=== PATIENT | female | born 1990 | race Caucasian/White ===

== ENCOUNTER 2018-03-17 20:32 | Emergency (ER) | payer OTHER, SELFPAY ==
--- NOTE | 2018-03-17 20:32 | DT_ITS ---
This patient was seen during an EMR downtime March 10, 2018 - March 17, 2018. This patient may have a combination of paper and electronic documentation or all paper documentation. All documentation is viewable within the e-chart portion of [facility] for each patient visit.
[2018-03-17 20:33] VITALS: BP 176/115; PULSE 98; RESP 14; TEMP 37.5; O2SAT 98; BMI 30.4
--- NOTE | 2018-03-17 21:21 | CT_ITS ---
STUDY: CT ABDOMEN AND PELVIS WITH CONTRAST REASON FOR EXAM: Female, 28 years old. Lower abdominal pain RADIATION DOSAGE (If Supplied By Facility): CTDIvol = ( 19.94 ) mGy, DLP = ( 868.99 ) mGycm TECHNIQUE: Transaxial images were obtained from the dome of the diaphragm to the symphysis pubis without oral contrast. 100 ml of Isovue 300 contrast was administered. Sagittal and coronal images were reconstructed. Individualized dose optimization techniques were used for this CT. COMPARISON: None. FINDINGS: The visualized lung bases are unremarkable. The visualized portions of the heart are within normal limits. There is decreased attenuation of the liver consistent with steatosis. Hepatomegaly. The liver measures 19 cm in length. Multiple gallstones are present. Indeterminate 2.9 x 2.6 cm low density lesion in the anterior spleen. Normal pancreas. Indeterminate nonfatty mass in the right adrenal gland measuring 3.5 x 2.5 cm. Normal right kidney. Normal left kidney. Normal visualized stomach. Normal small intestine. There are multiple colonic diverticula consistent with diverticulosis. The appendix is visualized and appears normal. Normal abdominal aorta. Normal inferior vena cava. Normal retroperitoneum. Normal urinary bladder. A 14 mm left ovary cyst or follicle is visible. Normal abdominal wall. Normal osseous structures. CT/Abdomen/Pelvis W IV Cont ONLY IMPRESSION: No evidence of acute intestinal pathology or acute obstructive uropathy. Hepatomegaly and fatty liver. Multiple gallstones. Indeterminate low density lesion in the spleen. Indeterminate right adrenal mass. Consider 12 month follow-up adrenal CT or MRI. A 14 mm left ovary cyst or follicle is visible. Electronically Signed: Mario Gore MD at 0:12 EDT Tel , Service support ,
[2018-03-17 22:12] LABS: Bacteria 0 SEEN /hpf (None Seen); Mucous, Urine 0 SEEN /hpf (<or=2+)
[2018-03-17 22:15] LABS: Absolute Lymphocyte Count 3.06 X10^3/ul (0.83-4.51); Absolute Neutrophil Count 5.8 X10^3/uL (2.0-7.7); Basophil# 0.06 X10^3/uL; Basophil% 0.6 % (0-1); Eosinophil# 0.21 X10^3/uL; Eosinophils% 2.2 % (0-5); Hematocrit 37.8 % (37-47); Lymphocyte # 3.06 X10^3/ul (4.0); Lymphocyte % 31.4 % (19-41); Mean Corp Hgb Conc 34.4 g/gl (32-36); Mean Corpuscular Hgb 28.6 pg (27.0-32.0); Mean Corpuscular Volume 83.1 fL (81-99); Mean Platelet Vol. 9.3 fl (6.2-12.0); Monocyte% 6.2 % (0-10); Neutrophil % 59.5 % (47-70); Platelet Count 259 K/mm3 (150-450); RBC Distribution Width CV 14.6 % (11.6-14.6); RBC Distribution Width SD 43.5 fl (35.1-43.9); Red Blood Count 4.55 M/mm3 (4.2-5.4); White Blood Count 9.7 K/mm3 (4.4-11.0)
[2018-03-17 22:18] LABS: POSITIVE COUNT NO; POSITIVE DIFFERENTIAL NO; POSITIVE MORPHOLOGY NO
[2018-03-17 22:26] LABS: Color, Urine Straw (Yellow); Glucose, Dipstick Normal (Normal); Ketone-Dipstick Negative (Negative); Leukocyte Esterase-Dipstick Negative /ul (Negative); Nitrite-Dipstick Negative (Negative); Occult Blood-Urine Negative /ul (Negative); Protein-Dipstick Negative (Negative); Specific Gravity, Urine 1.015 (1.002-1.030); Urine Bilirubin Dipstick Negative (Negative); Urine Clarity Clear (Clear); Urine Urobilinogen Normal (Normal)
[2018-03-17 22:34] LABS: Internal QC Validated? YES +Cl - CLEAR BKGD
[2018-03-17 22:35] LABS: Pregnancy, Urine Negative Negative
[2018-03-17 22:51] LABS: Squamous Epithelial Cells - UA 0-5 SEEN /hpf (5-10)
[2018-03-17 22:52] LABS: Red Blood Cells-Urine 0-5 SEEN /hpf (0-5); White Blood Cells 0-5 SEEN /hpf (0-5)
[2018-03-17 23:02] LABS: ALB/GLOB Ratio 1.2 RATIO (0.9-2.4); AST(SGOT) 27 U/L (15-37); Alanine Aminotransfer ALT/SGPT 33 U/L (13-56); Albumin, Serum 3.8 g/dL (3.2-5.0); Alkaline Phosphatase 64 U/L (45-117); Anion Gap 9 (5-15); BUN 9 mg/dL (7-18); BUN/Creat Ratio 12.3 RATIO (10-20); Calcium,Total 8.7 mg/dL (8.5-10.1); Chloride 101 mmol/L (98-107); Creatinine, Serum 0.73 mg/dL (0.55-1.02); EST Glomerular Filtration Rate 101 mL/min (>60); Est Glom Filt Rate - Afr Amer 122 mL/min (>60); Globulin 3.3 g/dL (2.2-4.2); Glucose 122 mg/dL (74-106); Potassium 2.5 mmol/L (3.5-5.1); Protein, Total 7.1 g/dL (6.4-8.2); Sodium Level 143 mmol/L (136-145)
--- NOTE | 2018-03-17 23:03 | EKG12_ITS ---
Test Reason : ABD PAIN Blood Pressure : / mmHG Vent. Rate : 084 BPM Atrial Rate : 084 BPM P-R Int : 152 ms QRS Dur : 100 ms QT Int : 402 ms P-R-T Axes : 051 -04 -17 degrees QTc Int : 475 ms Normal sinus rhythm Voltage criteria for left ventricular hypertrophy Nonspecific T wave abnormality Prolonged QT Abnormal ECG Confirmed by JOANNE MCCONNELL, LYNDA ([id number]), photograph editor SHAINA BOWDEN ([id number]) on 03/19/2018 5:18:32 PM Referred By: DR DHALIWAL Confirmed By:LYNDA RUBIO MD
--- NOTE | 2018-03-17 23:19 | ED.VISSUMM ---
- ER Visit Summary Date of Service: 03/17/18 Chief Complaint: Abdominal pain History of Present Illness: The patient is a 28 F who states that yesterday morning she awoke with lower abdominal pain. She states it is on both sides of her abdomen. It is worse with walking and any type of movement. It is sore when she pushes on it. She denies any bowel or bladder symptoms. She notes her last menstrual period was a little over 1 week ago. No fevers. No anorexia. She has been eating normally today. She states she has a history of GERD and hypertension but does not take any medications. Physical Examination: Afebrile vital signs are stable noted hypertension Gen: Well-nourished well-developed Head: Normocephalic atraumatic Eyes: Perrl EOMI ENT: TMs clear no rhinorrhea moist mucous membranes Neck: Supple no lymphadenopathy no JVD nontender CVS: Regular rate rhythm no murmurs normal S1-S2 Respiratory: No distress clear to auscultation bilaterally chest nontender Abdomen: Soft tender to palpation over the lower abdominal quadrants without guarding or rebound nondistended normal bowel sounds no masses Back: Nontender Extremity: Nontender no edema Skin: Normal color no rash Neuro: alert orientated ?3 CN II-XII intact normal strength sensation reflexes gait cerebellar Psych: Normal affect normal mood Test Results: White count is normal. Potassium is low at 2.5. Glucose 122. test negative. Urinalysis negative. CT the abdomen pelvis demonstrates gallstones adrenal nodule and ovarian cyst. EKG shows a sinus rhythm at a rate of 84. No U waves. Emergency Department Course and Treatment: None of the workup truly explain why the patient has bilateral lower abdominal pain. Could be a simple abdominal wall strain. The patient's blood pressure is elevated and we talked about whether or not she should start treatment and we are going to defer to primary care. Patient states she would like to get the potassium corrected first before she needs to start any blood pressure medication which I agree with. We will start her on potassium asked her to follow-up with her primary care physician on Saturday of this week. She is to record her blood pressures and take them to her doctor. Return if any worsening or concerns. Impression: 1. Acute abdominal pain 2. Hypokalemia 3. Gallstones 4. Adrenal nodule This note was generated with Dragon dictation software. It may contain incorrect words, spelling, and punctuation that were not noted in review of the chart prior to signing ED Disposition - Plan for ED Patient: Disposition: Home or Assisted Living Chief Complaint: Abd Pain Instructions: Discharge Instructions for Hypokalemia, What are Gallstones?, ED Hypertension Poss Prescriptions: Potassium Chloride [K-Dur] 40 meq PO DAILY #10 tab Additional Instructions: Please follow-up with your doctor on Saturday of this week to have your potassium rechecked as well as her blood pressure. It is more than likely that you will need to begin hypertension medications.
[2018-03-17 23:41] LABS: Magnesium 2.1 mg/dL (1.6-2.6)
[2018-03-18 00:01] VITALS: BP 165/115; PULSE 79; RESP 18; O2SAT 98
[2018-03-18 00:12] LABS: Potassium 2.3 mmol/L (3.5-5.1)
[2018-03-18 00:40] VITALS: BP 167/118
== END 2018-03-18 01:29 | disposition home or self-care (01) ==
PROVIDERS: Emergency Provider Emergency Medicine; Family Provider Internal Medicine; PCP Internal Medicine
DX: R10.32 Left lower quadrant pain (principal); R10.31 Right lower quadrant pain; K80.80 Other cholelithiasis without obstruction; E87.6 Hypokalemia; E27.9 Disorder of adrenal gland, unspecified; I10 Essential (primary) hypertension; N83.02 Follicular cyst of left ovary
CPT/HCPCS: 74177; 80053; 81001; 81025; 83735; 84132; 85025; 93005; 96365; 99285; J7030; A4216

== ENCOUNTER → 2018-04-10 14:28 | Outpatient (CLI) | payer OTHER, SELFPAY | PROVIDERS: Family Provider Internal Medicine; PCP Internal Medicine; Visit Provider Internal Medicine Nephrology | DX: E87.6 Hypokalemia (principal) | CPT/HCPCS: 84133 ==

== ENCOUNTER → 2018-04-12 10:26 | Outpatient (CLI) | payer OTHER, SELFPAY ==
[2018-04-12 11:47] LABS: Potassium 2.7 mmol/L (3.5-5.1)
== END ==
PROVIDERS: Family Provider Internal Medicine; PCP Internal Medicine; Visit Provider Internal Medicine Nephrology
DX: E87.6 Hypokalemia (principal)
CPT/HCPCS: 36415; 84132

== ENCOUNTER → 2018-04-14 08:21 | Outpatient (CLI) | payer OTHER, SELFPAY ==
[2018-04-19 12:13] LABS: Aldosterone, Ur 17.67 ug/L (Not Estab.); Cortisol, Urinary Free 17 ug/L (Undefined)
[2018-04-19 15:10] LABS: Cortisol, Free 24Ur 18 ug/24 hr (0-50)
== END ==
PROVIDERS: Family Provider Internal Medicine; PCP Internal Medicine; Visit Provider Internal Medicine Nephrology
DX: E26.9 Hyperaldosteronism, unspecified (principal)
CPT/HCPCS: 82088; 82530

== ENCOUNTER → 2018-04-22 09:06 | Outpatient (CLI) | payer OTHER, SELFPAY ==
[2018-04-28 10:11] LABS: Aldosterone, Serum 11.2 ng/dL (0.0-30.0); Renin, Plasma < 0.167 ng/mL/hr (0.167-5.380)
== END ==
PROVIDERS: Family Provider Internal Medicine; PCP Internal Medicine; Visit Provider Internal Medicine Nephrology
DX: E26.9 Hyperaldosteronism, unspecified (principal)
CPT/HCPCS: 36415; 82088; 84244

== ENCOUNTER → 2018-04-25 07:40 | Outpatient (CLI) | payer OTHER, SELFPAY ==
[2018-04-25 10:26] LABS: Albumin, Serum 3.6 g/dL (3.2-5.0); BUN 7 mg/dL (7-18); BUN/Creat Ratio 11.9 RATIO (10-20); Calcium,Total 8.7 mg/dL (8.5-10.1); Chloride 105 mmol/L (98-107); Creatinine, Serum 0.59 mg/dL (0.55-1.02); EST Glomerular Filtration Rate 129 mL/min (>60); Est Glom Filt Rate - Afr Amer 156 mL/min (>60); Glucose 93 mg/dL (74-106); Magnesium 1.9 mg/dL (1.6-2.6); Phosphorus 2.4 mg/dL (2.5-4.9); Sodium Level 144 mmol/L (136-145)
== END ==
PROVIDERS: Family Provider Internal Medicine; PCP Internal Medicine; Visit Provider Internal Medicine Nephrology
DX: E87.6 Hypokalemia (principal)
CPT/HCPCS: 36415; 80069; 83735

== ENCOUNTER → 2018-06-24 11:51 | Outpatient (CLI) | payer OTHER, SELFPAY ==
[2018-06-24 13:04] LABS: Potassium 3.7 mmol/L (3.5-5.1)
== END ==
PROVIDERS: Family Provider Internal Medicine; PCP Internal Medicine
DX: E87.6 Hypokalemia (principal)
CPT/HCPCS: 36415; 84132

== ENCOUNTER 2018-12-06 12:41 | Emergency (ER) | payer SELFPAY ==
[2018-12-06 12:43] VITALS: BP 162/89; PULSE 88; RESP 16; TEMP 36.2; O2SAT 100; BMI 30.9
--- NOTE | 2018-12-06 13:53 | US_ITS ---
STUDY: FIRST TRIMESTER OBSTETRICAL ULTRASOUND REASON FOR EXAM: Female, 28 years old. Pelvic pain and cramping LMP: 10/28/2018 TECHNIQUE: Transvaginal TECHNICAL QUALITY: Adequate. PRIOR ULTRASOUND: None. FINDINGS: There is visualization of a single gestational sac in a normal intrauterine position. The mean sac diameter (MSD) measures 1.1 cm, indicating an estimated gestational age (EGA) of 5 weeks, 5 days. The gestational sac shape is within normal limits. There is a visualized yolk sac. The yolk sac measures 3.1 mm. The placenta is non-visualized due to early gestation. There is no demonstrated embryo ( pole). The estimated gestation age (EGA) by LMP is 5 weeks, 4 days. The estimated date of delivery (FLORA) by LMP is 08/04/2019. The estimated gestation age (EGA) by US is 5 weeks, 5 days. The estimated date of delivery (FLORA) by US is 07/26/2019. The uterus measures 8.9 x 4.5 x 4.2 cm. There is no demonstrated uterine fibroid. The cervix is closed. The right ovary measures 2.7 x 2.6 x 1.8 cm. There is no right ovarian cyst. There is no visualized right adnexal mass or complex lesion. The left ovary measures 3.2 x 2.8 x 2.3 cm. There is no left ovarian cyst. There is no visualized left adnexal mass or complex lesion. There is no fluid in the cul de sac. US/Transvaginal w/Preg US IMPRESSION: 1. Intrauterine gestational sac with yolk sac but no visualized embryonic pole. May represent early . Serologic and sonographic follow-up recommended. 2. No adnexal masses or pelvic free fluid. Electronically Signed: Wilbur Bruce MD at 15:22 EST , Service support ,
--- NOTE | 2018-12-06 13:55 | ED.DCSUM_ITS ---
- ER Visit Summary Date of Service: 12/06/18 Chief Complaint: Pelvic pain History of Present Illness: The patient is a 28 F presenting with pelvic pain. She states this feels like menstrual cramps but worse than usual. She is currently 6 weeks . Her last mental period was end of October. She is . She denies vaginal bleeding. She has nausea with no vomiting. Denies other complaints. Physical Examination: Vitals are stable. Patient is afebrile. Alert no acute distress. HEENT exam is unremarkable. Neck is supple. Lungs are clear and equal bilaterally. Heart is regular rate and rhythm. Abdomen is soft nontender nondistended. No guarding or rebound Extremities are unremarkable. Skin is warm and dry. No focal neurologic deficit. Remainder of exam is unremarkable. Emergency Department Course and Treatment: Patient was given Tylenol, Zofran. Pelvic ultrasound shows intrauterine gestational sac with yolk sac but no visualized embryonic pole. May represent early . Serologic and sonographic follow-up recommended. No adnexal masses or pelvic free fluid. Blood type A+. HCG quant 9313. Patient is resting comfortably on reevaluation. Advised to follow-up with Dr. 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 Advised return to ED for worsening complaints. Disposition: Discharge home Impression: This note was generated with [employer] dictation software. It may contain incorrect words, spelling, and punctuation that were not noted in review of the chart prior to signing ED Disposition - Plan for ED Patient: Instructions: ED Care Prescriptions: Ondansetron [Zofran Odt] 4 mg PO Q8H PRN PRN #10 tablet PRN Reason: Nausea Referrals: Yolie Philippe MD [STAFF PHYSICIAN] - Indiana Callejas MD [Primary Care Provider] -
[2018-12-06] MEDS: Ondansetron ODT 4 MG Tablet PO (15:03)
[2018-12-06] MEDS: Acetaminophen 500 MG Tablet 1000 MG PO (15:03)
[2018-12-06 16:30] LABS: hCG Titer Quant., Serum 9313 mIU/mL (<9 non-preg)
--- NOTE | 2018-12-06 16:35 | ED.DEP ---
ED Disposition - Plan for ED Patient: Instructions: ED Care Prescriptions: Ondansetron [Zofran Odt] 4 mg PO Q8H PRN PRN #10 tablet PRN Reason: Nausea Referrals: Indiana Callejas MD [Primary Care Provider] - Yolie Philippe MD [STAFF PHYSICIAN] -
[2018-12-06 16:47] VITALS: PULSE 84; RESP 17; O2SAT 100
== END 2018-12-06 16:49 | disposition home or self-care (01) ==
LOC: ED 13:59
PROVIDERS: Emergency Provider Emergency Medicine; Family Provider Internal Medicine; PCP Internal Medicine
DX: O26.891 Other specified pregnancy related conditions, first trimester (principal); R10.2 Pelvic and perineal pain; Z3A.01 Less than 8 weeks gestation of pregnancy
CPT/HCPCS: 36415; 76817; 84702; 86900; 99283

== ENCOUNTER 2021-07-13 00:51 | Emergency (ER) | payer OTHER, SELFPAY ==
[2021-07-13 00:52] VITALS: BP 137/96; PULSE 88; RESP 18; TEMP 37.1; O2SAT 98; BMI 32.4
--- NOTE | 2021-07-13 01:38 | ED.VIS.GI ---
HPI HPI - GI History of Present Illness Chief Complaint: Abd Pain Detail of Chief Complaint: Abdominal pain that started 2 days ago Informant: patient Narrative Narrative: Patient complains of abdominal pain that started 2 days ago. She describes it as achy and crampy. She rates it a 7 out of 10 currently. Patient's had nausea but no vomiting. Last menstrual period was 30 days ago. Patient had her gallbladder removed. A friend gave her an antacid but did not seem to help this morning. Patient's had no fevers. She denies urinary symptoms. She has had similar pains in the past but never lasted this long. PFSH PFSH Home Medications potassium chloride 40 meq PO DAILY #10 tab 03/18/18 [Rx Last Taken Unknown] ondansetron 4 mg PO Q8H PRN PRN #10 tab 12/06/18 [Rx Last Taken Unknown] lansoprazole [Prevacid] 30 mg PO DAILY 28 Days #28 cap 07/13/21 [Rx Last Taken Unknown] Allergy/AdvReac Type Severity Reaction Status Date / Time lisinopril AdvReac Other Verified 07/13/21 00:55 Social History Smoking Status: Never smoker ROS ROS ED Constitutional Constitutional ED: Reports systems reviewed and no addt'l complaints, except as documented; Denies body ache(s), change in weight or chills Eyes Eyes: Denies acute decrease in peripheral vision, change in vision, double vision or loss of vision ENT ENT ED: Reports none; Denies ear pain, lip swelling, loss taste/smell, neck pain, otalgia or sore throat Cardiovascular Cardiovascular: Reports none; Denies abdominal pain, chest pain with activity, leg edema, lightheadedness, palpitations, rapid heart rate or syncope Respiratory/Chest Respiratory/Chest: Reports none; Denies change in mental status, dry cough, dyspnea, hemoptysis, shortness of breath at rest or shortness of breath with exertion Gastrointestinal Gastrointestinal: Reports none, abdominal pain and nausea; Denies change in stool character, diarrhea, hematemesis, hematochezia, melena, rectal bleeding or vomiting Genitourinary Genitourinary ED: Reports none; Denies abdominal discomfort, anuria, dysuria, genital pain or polyuria Musculoskeletal Musculoskeletal: Reports none; Denies arthralgias, back pain, difficulty walking, extremity pain, muscle weakness or myalgias Integumentary Reports none; Denies abscess or rash Neurologic Neurologic: Reports none; Denies abnormal gait, confusion, focal weakness, frequent falls, headache(s), loss of vision, numbness, paresthesias, radicular pain, vertigo or weakness Psychiatric Psychiatric: Reports systems reviewed and no addt'l complaints, except as documented and none; Denies behavioral changes, confusion, difficulty concentrating, hallucinations, suicidal ideation, tactile hallucinations or visual hallucinations Endocrine Endocrinology: Denies none, cold intolerance, excessive sweating, fatigue or heat intolerance Hematologic/Lymphatic Hematologic/Lymphatic: Reports none; Denies anemia, easy bleeding or easy bruising Allergic/Immunologic Allergic/Immunologic ED: Denies as per HPI, none, lip swelling, mouth swelling, throat swelling, tongue swelling or hives EXAM Physical Exam Const Vital Signs: 07/13/21 00:52 Temperature 98.7 F Temperature Source Temporal Pulse Rate 88 Respiratory Rate 18 Blood Pressure 137/96 H Blood Pressure Mean 109 Pulse Ox 98 Oxygen Delivery Method Room Air Positive well nourished and well developed General Appearance ED: well developed and NAD HEENT Reports TM's clear and moist mucous membranes normocephalic and atraumatic; Negative for trauma or tenderness Tympanic Membrane ED: Yes TM's clear Eyes PERRL and EOMs intact bilaterally General Eye ED: Negative for pale conjunctiva or scleral icterus Neck no lymphadenopathy, supple and no JVD General: Negative for tenderness Chest Wall inspection of chest normal and palpation of chest normal Chest: Negative for tenderness Resp normal respiratory effort and clear to auscultation bilaterally Effort and Inspection: Negative for respiratory distress or pain with movement Auscultation: Negative for rhonchi, wheezes or diminished lung sounds Cardio regular rate, regular rhythm, S1 normal heart sound, S2 normal heart sound and no murmurs Peripheral Pulses: pulses 2+ throughout GI normal to inspection, nondistended, normoactive bowel sounds, soft to palpation, non-distended and no masses GI Narrative: Patient has tenderness palpation over the epigastric region. No rebound, rigidity, or peritoneal signs. No tenderness over McBurney's. Palpation: tender Back/Spine no CVA tenderness and no thoracic nor lumbar tenderness Extremity normal to inspection General Extremety ED: Negative for edema General Extremity: Negative for edema Neuro oriented x3, CN's II-XII intact bilaterally, no sensory deficits noted and gait normal Sensorium / Orientation: awake, alert, oriented to person, oriented to place and oriented to time Motor Exam: strength 5/5 throughout and strength abnormal Psych mental status grossly normal Skin no rashes or lesions noted and no wounds MDM MDM MDM Narrative Medical decision making narrative: IV line established on arrival. Patient was given a GI cocktail and she had some improvement in her discomfort but stated that the pain started to come back. She now tells me that she used to be on Prilosec 5 or 6 months ago after going to urgent care for similar pain. Patient does not feel like that helped her very much. Patient states that she does take ibuprofen frequently for headaches. At this point we discussed possibly obtaining a CT scan of the abdomen to rule out bowel obstruction versus inflammatory bowel disease versus possible mass in the abdomen however all of these are with low suspicion. Patient does not want to pursue a CAT scan at this time and would like to follow-up with GI. She will be referred to Dr. Godwin for follow-up and will be started on Prevacid. She is advised to discontinue NSAIDs and use Tylenol for discomfort. Patient advised to avoid acidic foods. I suspect likely gastritis or peptic ulcer disease. She is not had black tarry stools or hematemesis and clinically feel patient can be safely discharged to home. Patient advised to return if worsening pain, fever, vomiting, black tarry stools, hematemesis, or condition should worsen anyway. Lab Data Attestation: I reviewed the patient's lab results. Labs: Laboratory Results - last 24 hr 07/13/21 07/13/21 07/13/21 02:13 02:13 02:13 WBC 11.8 H RBC 4.66 Hgb 14.1 Hct 42.2 MCV 90.6 MCH 30.3 MCHC 33.4 RDW Std Deviation 43.6 RDW Coeff of Rickey 13.2 Plt Count 277 MPV 10.4 Immature Gran % (Auto) 0.300 Neut % (Auto) 65.9 Lymph % (Auto) 26.1 [place] % (Auto) 5.5 Eos % (Auto) 1.4 Baso % (Auto) 0.8 Absolute Neuts (auto) 7.7 Absolute Lymphs (auto) 3.07 Nucleated RBC % 0 Sodium 139 Potassium 3.9 Chloride 107 Carbon Dioxide 26.0 Anion Gap 6 BUN 11 Creatinine 0.81 Estim Creat Clear Calc 90.55 Est GFR (MDRD) Af Amer 106 Est GFR (MDRD) Non-Af 88 BUN/Creatinine Ratio 13.6 Glucose 103 Lactic Acid 0.9 Calcium 8.7 Total Bilirubin 0.70 AST 27 ALT 28 Alkaline Phosphatase 66 Total Protein 7.6 Albumin 3.6 Globulin 4.0 Albumin/Globulin Ratio 0.9 Lipase 106 Serum , Qual Urine Color Urine Clarity Urine pH Ur Specific [place] Urine Protein Urine Glucose (UA) Urine Ketones Urine Occult Blood Urine Nitrite Urine Bilirubin Urine Urobilinogen Ur Leukocyte Esterase Urine RBC Urine WBC Ur Squamous Epith Cells Amorphous Sediment Urine Bacteria Urine Mucus 07/13/21 07/13/21 02:13 02:23 WBC RBC Hgb Hct MCV MCH MCHC RDW Std Deviation RDW Coeff of Rickey Plt Count MPV Immature Gran % (Auto) Neut % (Auto) Lymph % (Auto) [place] % (Auto) Eos % (Auto) Baso % (Auto) Absolute Neuts (auto) Absolute Lymphs (auto) Nucleated RBC % Sodium Potassium Chloride Carbon Dioxide Anion Gap BUN Creatinine Estim Creat Clear Calc Est GFR (MDRD) Af Amer Est GFR (MDRD) Non-Af BUN/Creatinine Ratio Glucose Lactic Acid Calcium Total Bilirubin AST ALT Alkaline Phosphatase Total Protein Albumin Globulin Albumin/Globulin Ratio Lipase Serum , Qual NEGATIVE Urine Color Yellow Urine Clarity Clear Urine pH 5.0 Ur Specific [place] 1.025 Urine Protein 15 H Urine Glucose (UA) Normal Urine Ketones Negative Urine Occult Blood Negative Urine Nitrite Negative Urine Bilirubin Negative Urine Urobilinogen Normal Ur Leukocyte Esterase 25 H Urine RBC 0 SEEN Urine WBC 0-5 SEEN Ur Squamous Epith Cells 0-5 SEEN Amorphous Sediment RARE Urine Bacteria 3+ Urine Mucus 1+ Discharge Plan Triage Chief Complaint: Abd Pain ED Provider: Conner [place] Dx/Rx/DC Orders Clinical Impression: Abdominal pain, Gastritis Instructions: ED Abdominal Pain Unkn Cause Fem, ED PEPTIC ULCER vs GASTRITIS Prescriptions: New lansoprazole [Prevacid] 30 mg capsule,delayed release(DR/EC) 30 mg PO DAILY 28 Days Qty: 28 RF: 0 No Action potassium chloride 20 MEQ tablet 40 meq PO DAILY Qty: 10 RF: 0 ondansetron 4 MG tablet 4 mg PO Q8H PRN PRN (Reason: Nausea) Qty: 10 RF: 0 Primary Care Provider: Care Physician,No Primary Referrals: Friend,DO Adán [STAFF PHYSICIAN] - 3-5 Days Care Physician,No Primary [Primary Care Provider] - Disposition Disposition: Home, Self Care
[2021-07-13] MEDS: Mag Hydrox/Al Hydrox/Simeth 30 ML UDC PO (01:50)
[2021-07-13 02:29] LABS: Absolute Lymphocyte Count 3.07 X10^3/uL (0.83-4.51); Absolute Neutrophil Count 7.7 X10^3/uL (2.0-7.7); Basophil# 0.09 X10^3/uL; Basophil% 0.8 % (0-1); Eosinophil# 0.17 X10^3/uL; Eosinophils% 1.4 % (0-5); Hematocrit 42.2 % (37-47); Hemoglobin 14.1 g/dL (12.0-15.0); Lymphocyte # 3.07 X10^3/ul (0.83-4.51); Lymphocyte % 26.1 % (19-41); Mean Corp Hgb Conc 33.4 g/dL (32-36); Mean Corpuscular Hgb 30.3 pg (27.0-32.0); Mean Corpuscular Volume 90.6 fL (81-99); Mean Platelet Vol. 10.4 fl (6.2-12.0); Monocyte# 0.65 X10^3/uL; Monocyte% 5.5 % (0-10); NRBC Flagged by Analyzer 0 % (0-5); Neutrophil # 7.74 X10^3/uL (2.7-7.7); Neutrophil % 65.9 % (47-70); Platelet Count 277 K/mm3 (150-450); RBC Distribution Width CV 13.2 % (11.6-14.6); RBC Distribution Width SD 43.6 fl (35.1-43.9); Red Blood Count 4.66 M/mm3 (4.2-5.4); White Blood Count 11.8 K/mm3 (4.4-11.0)
[2021-07-13 02:39] LABS: Color, Urine Yellow (Yellow); Glucose, Dipstick Normal (Normal); Ketone-Dipstick Negative (Negative); Leukocyte Esterase-Dipstick 25 /ul (Negative); Nitrite-Dipstick Negative (Negative); Occult Blood-Urine Negative /ul (Negative); Protein-Dipstick 15 mg/dl (Negative); Red Blood Cells-Urine 0 SEEN /hpf (0-5); Specific Gravity, Urine 1.025 (1.002-1.030); Urine Bilirubin Dipstick Negative (Negative); Urine Clarity Clear (Clear); Urine Urobilinogen Normal (Normal)
[2021-07-13 02:44] LABS: Internal QC Validated? YES +Cl - CLEAR BKGD; Pregnancy, Serum, hCG Quali. NEGATIVE Negative
[2021-07-13 02:58] LABS: ALB/GLOB Ratio 0.9 RATIO (0.9-2.4); AST(SGOT) 27 U/L (15-37); Alanine Aminotransfer ALT/SGPT 28 U/L (13-56); Albumin, Serum 3.6 g/dL (3.2-5.0); Alkaline Phosphatase 66 U/L (45-117); Anion Gap 6 (5-15); BUN 11 mg/dL (7-18); BUN/Creat Ratio 13.6 RATIO (10-20); Calcium,Total 8.7 mg/dL (8.5-10.1); Chloride 107 mmol/L (98-107); Creatinine, Serum 0.81 mg/dL (0.55-1.02); EST Glomerular Filtration Rate 88 mL/min (>60); Est Glom Filt Rate - Afr Amer 106 mL/min (>60); Estimated Creatinine Clearance 90.55 ml/min; Glucose 103 mg/dL (74-106); Lactic Acid 0.9 mmol/L (0.4-1.9); Lipase 106 U/L (73-393); Potassium 3.9 mmol/L (3.5-5.1); Protein, Total 7.6 g/dL (6.4-8.2); Sodium Level 139 mmol/L (136-145)
[2021-07-13 03:01] LABS: Bacteria 3+ /hpf (None Seen)
[2021-07-13 03:02] LABS: Amorphous Sediment RARE; Mucous, Urine 1+ /hpf (<or=2+); Squamous Epithelial Cells - UA 0-5 SEEN /hpf (5-10); White Blood Cells 0-5 SEEN /hpf (0-5)
== END 2021-07-13 03:32 | disposition home or self-care (01) ==
PROVIDERS: Emergency Provider Emergency Medicine
DX: K29.70 Gastritis, unspecified, without bleeding (principal); R10.9 Unspecified abdominal pain; Z90.49 Acquired absence of other specified parts of digestive tract
CPT/HCPCS: 80053; 81001; 83605; 83690; 84703; 85025; 99283; J7030; A4216

== ENCOUNTER 2024-07-27 09:40 | Day surgery (SDC) | payer BC, SELFPAY ==
[2024-07-27] VITALS (9 sets, daily range): BP systolic 118–132; BP diastolic 77–88; PULSE 77–97; RESP 16–18; TEMP 36.3–36.4; O2SAT 95–99; BMI 33.3
[2024-07-27 10:47] LABS: hCG Titer Quant., Serum < 1 mIU/mL (1-3)
--- NOTE | 2024-07-27 11:05 | PCM.PRE.AN2 ---
ASA Classification* ASA Classification ASA Classification: 2 Assessment & Plan Anesthesia* Anesthesia Assessment Anesthesia Assessment: Discussed sedation and/or anesthesia options, risks, benefits, and alternatives with patient/parents/legal guardian/POA. Questions invited. The patient/parents/legal guardian/POA seems to understand and agrees to proceed with anesthesia plan. Reviewed the physical assessment, medical history, allergy history and patient home medications list prior to surgery/procedure/anesthetic and documented any changes. Performed airway and anesthesia risk assessments. Anesthesia Type Anesthesia Type: MAC Anesthesia Focused Assessment* Temperature: 97.3 F Pulse Rate: 84 Blood Pressure: 132/88 Respiratory Rate: 18 Pulse Ox: 99 Airway Assessment Mouth opens: >3 cm Mallampati Score: II Focused Labs Anesthesia Preop lab: CBC WBC 11.8 K/mm3 (4.4-11.0) H 07/13/21 02:13 RBC 4.66 M/mm3 (4.2-5.4) 07/13/21 02:13 Hgb 14.1 g/dL (12.0-15.0) 07/13/21 02:13 Hct 42.2 % (37-47) 07/13/21 02:13 Plt Count 277 K/mm3 (150-450) 07/13/21 02:13 CHEMISTRY Potassium 3.9 mmol/L (3.5-5.1) 07/13/21 02:13 Sodium 139 mmol/L (136-145) 07/13/21 02:13 Magnesium 1.9 mg/dL (1.6-2.6) 04/25/18 07:42 Phosphorus 2.4 mg/dL (2.5-4.9) L 04/25/18 07:42 BUN 11 mg/dL (7-18) 07/13/21 02:13 Creatinine 0.81 mg/dL (0.55-1.02) 07/13/21 02:13 Glucose 103 mg/dL (74-106) 07/13/21 02:13 COAG HCG, Quant < 1 mIU/mL (1-3) 07/27/24 10:06 Urine Test Negative Negative 03/17/18 22:00 Pre-Assessment Diagnosis/Proposed Procedure Planned Operative Procedure(s): EXCISION MASS LEFT EAR CANAL Anesthesia History 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 When Was Last Pacemaker Check QUESTION #4 FULL TEXT: You/Your Family Experience fever (hyperthermia) with Anesthesia Last Oral Intake Last Oral intake: Last Oral Intake NPO since 05:30 07/27/24 10:15 Meds taken in AM with sips of Yes 07/27/24 10:15 water? Meds patient instructed to take am of surgery PONV PONV - janitorial assistant: PONV - janitorial assistant Female Yes 07/22/24 09:17 HX of Motion Sickness No 07/22/24 09:17 HX of N/V After Surgery No 07/22/24 09:17 Non-Smoker Yes 07/22/24 09:17 Duration of Surgery greater No 07/22/24 09:17 than 60 minutes Number of Risk Factors 2 07/22/24 09:17 PONV Score Moderate Risk 07/22/24 09:17 Height & Weight Height & Weight: Anesthesia: Height & Weight Height 5 ft 5 in 07/27/24 10:15 Weight: 91 kg 07/27/24 10:15 Body Mass Index (BMI) 33.3 07/27/24 10:15 Respiratory Assessment Respiratory Assessment - janitorial assistant: Respiratory Tract Infection Hx - janitorial assistant Hx Respiratory Tract Infection No 07/22/24 09:17 STOP Sleep Apnea STOP Sleep Apnea - janitorial assistant: STOP Sleep Apnea - janitorial assistant Hx Hypertension Yes: CONTROLLED WITH MED 07/22/24 09:17 Hx Sleep Apnea No 07/22/24 09:17 CPAP BIPAP Do you snore loudly (louder No 07/22/24 09:17 than talking or can be heard Do you often feel tired/ No 07/22/24 09:17 fatigued/ sleepy during daytime? Has anyone observed you stop No 07/22/24 09:17 breathing during sleep? STOP Results Negative 07/22/24 09:17 QUESTION #5 FULL TEXT : Do you snore loudly (louder than talking or can be heard through closed doors)? 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 Specify any problems Hx of Preganancy in last 3 No 07/22/24 09:17 Months Nurse Filling Out Transfusion DSCHRIBER 07/22/24 09:17 & Questions: Date: 07/22/24 07/22/24 09:17 Time: 09:18 07/22/24 09:17 Patient unable to answer at this time (ie. confused, unrespo /Reproduction History /Reproductive History - janitorial assistant: /Reproductive Hx- janitorial assistant Hx Now No 07/22/24 09:17 Gestational Age (in weeks): EDC: Hx Hx Para Hx Section SAB No 07/22/24 09:17 PFSH Medical History Loss of hearing Wears glasses Wears contact lenses Anxiety Alcohol use Migraine headache History of IBS Non-smoker Hypertension Home Medications ?Medication ?Instructions ?Recorded ?Last Taken ?Type drospirenone (contraceptive) 4 mg 1 tab PO DAILY 07/22/24 07/26/24 History (28) tablet (Slynd) hydrochlorothiazide 12.5 mg capsule 12.5 mg PO DAILY 07/22/24 07/26/24 History pantoprazole 40 mg tablet,delayed 40 mg PO DAILY 07/22/24 07/27/24 History release Allergy/AdvReac Type Severity Reaction Status Date / Time metronidazole (From Flagyl) AdvReac Intermediate Upset Verified 07/27/24 10:13 Stomach lisinopril AdvReac Other Verified 07/27/24 10:13 Surgical History Hx of colonoscopy Hx laparoscopic cholecystectomy History of cystoscopy Hx of total adrenalectomy Hx of brain surgery History of incision and drainage Hx of myringotomy Social History Smoking Status: Never smoker Review of Systems (Anesthesia) ROS Narrative System reviewed and no additional complaints, except as documented.
--- NOTE | 2024-07-27 11:30 | MASS_PTH ---
PATIENT: MAXWELL PARKER LOC: [facility] [place] U#:[id number] AGE/SX: 34/F ROOM: RE07/27/[address]: Dr. Dm Steiner MD : 1990 BED: DIS: 07/27/2024 SPEC #: [id number] RECD: 07/28/24 07:15 STATUS: STACIE LES #: [id number] NOEMY: 07/27/24 11:[address]: Dm Steiner DEPT: SURGICAL PATHOLOGY RECD BY: Amie Romero ENTERED: 07/28/24 09:47 SP TYPE: Mass OTHR DR: Dr. Ronan Boone MD Tissues: Ear, NOS Procedures: Surgery Specimen Level IV HEADER OPERATION: Excision mass left ear canal PRE-OP DIAGNOSIS: Other benign neoplasm of external auricular canal TISSUE SUBMITTED: Left ear canal mass MICROSCOPIC DIAGNOSIS Left ear canal mass, excision: Acanthosis, hyperkeratosis and parakeratosis. Subepithelial fibrosis and reactive changes. Negative for malignancy. See comment. 07/29/2024 COMMENT Clinical correlation and appropriate follow up are necessary. Case has been reviewed in consultation with Dr. Morales who concurs with the above diagnosis. IDC:AM MICROSCOPIC DESCRIPTION Slides are reviewed. GROSS DESCRIPTION Received in fixative is one container labeled with the patient's name and designated Left ear canal mass. The specimen consists of a piece of darden-white skin measuring 0.1 x 0.1 x 0.1cm. The entire specimen is submitted in one cassette. 07/28/2024 TC:5 CPT:98496
[2024-07-27] MEDS: Ciprofloxacin 0.3% 2.5ml Bottle 1 DRP (13:00)
--- NOTE | 2024-07-27 13:02 | PCM.DC.SUM ---
Providers Primary Care Physician: Dr. Ronan Boone MD Reason For Visit: Excision, Mass left ear canal Medications at Discharge Home Medications drospirenone (contraceptive) 4 mg (28) tablet (Slynd) 1 tab PO DAILY 07/22/24 hydrochlorothiazide 12.5 mg capsule 12.5 mg PO DAILY 07/22/24 pantoprazole 40 mg tablet,delayed release 40 mg PO DAILY 07/22/24 Weight / BMI Weight Weight: 91 kg Body Mass Index (BMI) 33.3 ABG / Lab / Microbiology Data Laboratory: Laboratory Results - last 24 hr 07/27/24 10:06: HCG, Quant < 1, HCG Beta Subunit Cancelled, Serum , Qual Cancelled D/C Instructions Discharge Diet: No restrictions Additional Activity Instructions: remove dressing and discard tomorrow morning. Please Follow Up With: Dm Steiner MD When: 2 weeks Meaningful Use Info Meaningful Use Meaningful Use Diagnoses (Choose all that apply): None applicable Ischemic Stroke Statin Dosing Therapy Reference: STATIN DOSE THERAPY REFERENCE: * Patients > 75 years receive moderate or high dose statin therapy. * Patients 75 years or YOUNGER should receive HIGH intensity statin dose unless contraindicated. You will be required to document reason for non-treatment if statin daily dose does not meet guidelines. HIGH DOSE STATIN THERAPY DAILY Atorvastatin > than or = to 40 mg Rosuvastatin > than or = to 20 mg Amlodipine + Atorvastatin > than or = to 2.5/40 mg Ezetimibe + Simvastatin 10/80 mg Simvastatin 80mg Discharge Plan Admission Attending Provider: Dm Steiner Primary Care Provider: Ronan Boone Instructions Print Language: Burmese Discharge Orders/Prescriptions Prescriptions: No Action hydrochlorothiazide 12.5 mg capsule 12.5 mg PO DAILY pantoprazole 40 mg tablet,delayed release (DR/EC) 40 mg PO DAILY Slynd 4 mg (28) tablet 1 tab PO DAILY Referrals / Follow Up: Ronan Boone MD [Primary Care Provider] - Disposition Disposition (needs filled in before D/C Order can be placed): Home, Self Care
[2024-07-27] MEDS: Lidocaine 1% /Epi 1:100 (20ml) 20 ML Vial (13:09)
--- NOTE | 2024-07-27 13:27 | OP.PCM_ITS ---
Report of Operation Date of Procedure: 07/27/24 Pre-Operative Diagnosis: left ear canal mass Post-Operative Diagnosis: same Surgery/Procedure Performed:: Excision left ear canal mass Surgeon: Dm Steiner Type of Anesthesia: General Anesthesiologist: Peter Rowan Estimated Blood Loss (mL): minimal Description of Procedure: The patient was taken to the op room on 07/27/2024. She was placed in the supine position on the operating room table. She was given sufficient general anesthesia after an attempt at local MAC. The left ear was prepped and draped sterilely. 1% lidocaine with epinephrine was injected into the external auditory canal. After sufficient vasoconstriction the operating microscope was used. A speculum inserted the patient's left ear. The mass was excised using a round [place] Plane blade. The mass was delivered and sent for permanent section. I then used monopolar cautery for hemostasis. Ciprofloxacin drops were then instilled in the patient's external auditory canal. She was awoken and brought to recovery room in stable condition. blood loss minimal, replacement none.sponge,needle and instrument count correct at the end procedure.
--- NOTE | 2024-07-27 13:35 | PCM.POST.ANE ---
Anesthesia: Postop Eval I Current Vital Signs Temperature: 97.5 F Pulse Rate: 97 Blood Pressure: 118/85 Respiratory Rate: 16 Pulse Ox: 96 Oxygen Delivery Method: Room Air Assessment Airway patent: Yes Spontaneous unlabored respirations: Yes Mental status: Awake and Calm nausea: No Vomiting: No Anesthesia Complication: No Fluid Hydration Crystalloid volume administer (ml): 10 Total IV fluid infused: 10 Progress Note Anesthesia document: Postop Eval 1 completed: Yes
--- NOTE | 2024-07-27 14:56 | PCM.POSTANE2 ---
Anesthesia Postop Eval I Sum Postop Eval Completion status Anesthesia document: Postop Eval 1 completed: Yes Anesthesia Postop Eval I Summary Anesthesia Postop Eval I Summary: Anesthesia Postop Eval I: Assessment Summary Airway patent Yes 07/27/24 14:29 Spontaneous unlabored Yes 07/27/24 14:29 respirations Mental status Awake,Calm 07/27/24 14:29 nausea No 07/27/24 14:29 Vomiting No 07/27/24 14:29 Anesthesia Postop Eval I: Fluid Summary Crystalloid volume administer 10 07/27/24 14:31 (ml) Colloids volume administered ( ml) Blood Product volume administered (ml) Total IV fluid infused 10 07/27/24 14:31 Anesthesia Postop Eval I: Summary Notes Anesthesia Complication No 07/27/24 14:29 Anesthesia Complication Comment: Post-operative progress note Anesthesia: Postop Eval II Evaluation Mental status: Awake and Calm Pain Level: 1 nausea: No Vomiting: No Complications Anesthesia Complication: No
[2024-07-28 22:59] LABS: Pathology Specimen Additional SEE PATHOLOGY REPORT
== END 2024-07-27 14:39 | disposition home or self-care (01) ==
LOC: SDC 09:42 → AC 10:12
PROVIDERS: Anesthesiology; PCP Family Medicine; Referring Provider Otolaryngology; Visit Provider Otolaryngology
PROC: (CPT 69420; principal; 2024-07-27 11:15)
DX: D23.20 Other benign neoplasm of skin of unspecified ear and external auricular canal (principal); I10 Essential (primary) hypertension; L57.0 Actinic keratosis; L83 Acanthosis nigricans; Z79.899 Other long term (current) drug therapy
CPT/HCPCS: 69145; 00120; 84702; 88305; A4216